=== PATIENT | female | born 1990 | race Caucasian/White ===

== ENCOUNTER 2016-08-10 20:40 | Emergency (ER) | payer MEDICAID ==
[2016-08-10 21:34] VITALS: BP 121/69
[2016-08-10] MEDS ORDERED: HYDROmorphone 0.5 MG/0.5 ML Syringe IVPUSH ONE (21:39)
[2016-08-10] MEDS ORDERED: Ondansetron 4 MG/2 ML SDV IVPUSH ONE (21:40)
--- NOTE | 2016-08-10 21:44 | EDM.PDOC ---
ED HPI GI/ABDOMINAL - General Chief Complaint: Genitourinary Problem Stated Complaint: FLANK PAIN,VOMITING,KIDNEY STONE Time Seen by Provider: 08/10/16 21:41 Source: Reports: Patient History Limitations: Reports: No limitations - History of Present Illness INITIAL COMMENTS - FREE TEXT/NARRATIVE: pt is about 19 weeks preg . She was found to have a 7mm kidney stone on the rt . She was seen in urology by Dr Ludwig and then she found out she was preg and they did not proceed with a procedure. Timing/Duration: Reports: Day(s):, Other (bout 3 days ago. ) Location: other (on the rt flank area.) Quality: Reports: stabbing, throbbing, radiating Associated Symptoms (-Female): Reports: back pain, nausea/vomiting, other ( She has an Urge to have a stool alot. ) - Related Data Allergies/ADRs: Allergies Allergy/AdvReac Type Severity Reaction Status Date / Time Penicillins Allergy Hives Verified 08/10/16 22:17 Home Meds: Home Meds B12/Levomefolate Calcium/B-6 [Folbic Rf Tablet] 1 each PO DAILY 06/07/13 [ History] Multivit with Calcium,Iron,Min [One Daily Maximum] 1 each PO DAILY 06/07/13 [ History] Acetaminophen/HYDROcodone [[place] 325-5 MG] 1 - 2 tab PO Q4H PRN #50 tablet 06/08 [Rx] Tamsulosin [Flomax] 0.4 mg PO DAILY 08/10/16 [History] Past Medical History - Past Health History Medical/Surgical History: Denies Medical/Surgical History Social & Family History - Tobacco Use Smoking Status *Q: Current Every Day Smoker Years of Tobacco use: 6 Used Tobacco, but Quit: No Month Tobacco Last Used: dec Second Hand Smoke Exposure: No - Alcohol Use Days Per Week of Alcohol Use: 0 - Recreational Drug Use Recreational Drug Use: No ED ROS GENERAL - Review of Systems Review Of Systems: See Below Constitutional: Reports: fever, chills, decreased appetite, other (pt has been vomiting. ) HEENT: Reports: No symptoms Respiratory: Reports: no symptoms Cardiovascular: Reports: No symptoms Endocrine: Reports: no symptoms. Denies: other GI/Abdominal: Reports: Other (pt has severe rt flank pain) : Reports: flank pain Musculoskeletal: Reports: no symptoms Skin: Reports: no symptoms ED EXAM, GI/ABD - Physical Exam Exam: See Below Text/Narrative:: pt has a known 7 mm stone on the rt which is down near the bladder, She has been having severe pain for the past 3 days. Her urine looks infected and her wbc is 20,000 Exam Limited By: No limitations General Appearance: alert, anxious Ears: normal TMs Nose: normal inspection Throat/Mouth: Normal inspection Head: atraumatic Neck: normal inspection Respiratory/Chest: no respiratory distress Cardiovascular: regular rate, rhythm, tachycardia GI/Abdominal: non tender Back Exam: CVA tenderness (R) Extremities: normal inspection Neurological: alert, oriented, normal cognition Course - Vital Signs Last Recorded V/S: Last Vital Signs Temp 36.2 C 08/10/16 21:33 Pulse 78 08/10/16 21:33 Resp 20 08/10/16 21:33 BP 121/69 08/10/16 21:33 Pulse Ox 98 08/10/16 21:33 - Orders/Labs/Meds Orders: Active Orders 24 hr Category Date Time Status OB Ltd 1 or More Fetus [US] Stat Exams 08/10/16 22:40 Taken Renal Comp [US] Stat Exams 08/10/16 21:44 Taken CULTURE URINE [] Stat Lab 08/10/16 22:15 Received Labs: Laboratory Tests 08/10/16 08/10/16 08/10/16 Range/Units 21:56 21:56 22:14 WBC 20.5 H (4.5-11.0) K/uL RBC 4.11 (3.30-5.50) M/uL Hgb 12.6 D (12.0-15.0) g/dL Hct 35.6 L (36.0-48.0) % MCV 87 (80-98) fL MCH 31 (27-31) pg MCHC 35 (32-36) % Plt Count 307 (150-400) K/uL Neut % (Auto) 84 H (36-66) % Lymph % (Auto) 9 L (24-44) % [place] % (Auto) 6 (2-6) % Eos % (Auto) 0 L (2-4) % Baso % (Auto) 0 (0-1) % Sodium 135 L (140-148) mmol/L Potassium 3.3 L (3.6-5.2) mmol/L Chloride 101 (100-108) mmol/L Carbon Dioxide 25 (21-32) mmol/L Anion Gap 12.3 (5.0-14.0) mmol/L BUN 8 (7-18) mg/dL Creatinine 0.7 (0.6-1.0) mg/dL Est Cr Clr Drug Dosing 103.32 mL/min Estimated GFR (MDRD) > 60 (>60) Glucose 95 (74-106) mg/dL Calcium 8.3 L (8.5-10.1) mg/dL Total Bilirubin 0.3 (0.2-1.0) mg/dL AST 13 L (15-37) U/L ALT 14 (12-78) U/L Alkaline Phosphatase 28 L (46-116) U/L Total Protein 7.0 (6.4-8.2) g/dL Albumin 3.5 (3.4-5.0) g/dL Globulin 3.5 (2.3-3.5) g/dL Albumin/Globulin Ratio 1.0 L (1.2-2.2) Urine Color Yellow Urine Appearance Turbid Urine pH 5.0 (4.5-8.0) Ur Specific [place] 1.025 (1.008-1.030) Urine Protein Negative (NEGATIVE) mg/dL Urine Glucose (UA) Normal (NEGATIVE) mg/dL Urine Ketones 150 H (NEGATIVE) mg/dL Urine Occult Blood Moderate (NEGATIVE) Urine Nitrite Negative (NEGATIVE) Urine Bilirubin Negative (NEGATIVE) Urine Urobilinogen Normal (NORMAL) mg/dL Ur Leukocyte Esterase Moderate (NEGATIVE) Urine RBC 10-20 H (0-5) Urine WBC 20-30 H (0-5) Ur Epithelial Cells Many Amorphous Sediment Not seen Urine Bacteria Many Urine Mucus Moderate Meds: Medications Discontinued Medications Generic Name Dose Route Start Last Admin Trade Name Freq PRN Reason Stop Dose Admin Hydromorphone HCl 0.5 mg 08/10/16 21:39 08/10/16 22:30 Dilaudid IVPUSH 08/10/16 21:40 0.5 mg ONETIME ONE Administration Hydromorphone HCl Confirm 08/10/16 22:39 08/11/16 00:13 Dilaudid Administered 08/10/16 22:40 Not Given Dose 0.5 mg .ROUTE .STK-MED ONE Hydromorphone HCl 0.5 mg 08/11/16 01:18 08/11/16 01:31 Dilaudid IVPUSH 08/11/16 01:19 0.5 mg ONETIME ONE Administration Sodium Chloride 1,000 mls @ 999 mls/hr 08/10/16 21:45 08/10/16 22:30 Normal Saline IV 999 mls/hr ASDIRECTED WILLY Administration Ceftriaxone Sodium 1 gm/ 50 mls @ 100 mls/hr 08/10/16 22:24 08/10/16 23:33 Sodium Chloride IV 08/10/16 22:53 100 mls/hr ONETIME ONE Administration Sodium Chloride 1,000 mls @ 999 mls/hr 08/10/16 23:15 08/11/16 00:53 Normal Saline IV 999 mls/hr ASDIRECTED WILLY Administration Nicotine 14 mg 08/11/16 00:12 08/11/16 00:55 Habitrol TRDERM 08/11/16 00:13 14 mg ONETIME ONE Administration Ondansetron HCl 4 mg 08/10/16 21:40 08/10/16 22:30 Zofran IVPUSH 08/10/16 21:41 4 mg ONETIME ONE Administration - Re-Assessments/Exams Free Text/Narrative Re-Assessment/Exam: 08/11/16 00:07 urine looks infected. It was cultured. Her wbc is 20,000. She was given dilaudid and she is more comfortable. 08/11/16 18:24 pt ws given a gram of rocephen Departure - Departure Time of Disposition: 21:35 Disposition: [facility] Condition: fair Clinical Impression: Hydronephrosis, right, Pyelonephritis affecting in second trimester, Kidney calculi, Dehydration Referrals: PCP,None [Primary Care Provider] - Forms: ED Department Discharge Care Plan Goals: transfer to [facility] - My Orders Last 24 Hours: My Active Orders 08/10/16 21:44 Renal Comp [US] Stat 08/10/16 22:15 CULTURE URINE [RM] Stat 08/10/16 22:40 OB Ltd 1 or More Fetus [US] Stat - Assessment/Plan Last 24 Hours: My Active Orders 08/10/16 21:44 Renal Comp [US] Stat 08/10/16 22:15 CULTURE URINE [RM] Stat 08/10/16 22:40 OB Ltd 1 or More Fetus [US] Stat
[2016-08-10] MEDS ORDERED: Sodium Chloride 0.9% 1,000 ML IV SCH ×2 (21:45→23:15)
[2016-08-10] MEDS ORDERED: cefTRIAXone 1 GM in Sodium Chloride 0.9% 50 ML IV ONE (22:24)
[2016-08-10] MEDS ORDERED: HYDROmorphone 0.5 MG/0.5 ML Syringe ONE (22:39)
[2016-08-11] MEDS ORDERED: Nicotine 14 MG/24 Hr Patch TRDERM ONE (00:12)
[2016-08-11] MEDS ORDERED: HYDROmorphone 0.5 MG/0.5 ML Syringe IVPUSH ONE (01:18)
== END 2016-08-11 01:28 | disposition designated cancer center or children's hospital (05) ==
LOC: JP.ED 20:40
DX: O23.02 Infections of kidney in pregnancy, second trimester (principal); N13.30 Unspecified hydronephrosis; N20.0 Calculus of kidney; E86.0 Dehydration; Z3A.19 19 weeks gestation of pregnancy
CPT/HCPCS: 36415; 76770; 76815; 80053; 81001; 85025; 87086; 96361; 96374; 96375; 99285; A9270; J0696; J1170; J2405; J7040; J7050